=== PATIENT | female | born 2000 | race Two or more races ===

== ENCOUNTER 2024-10-23 13:43 | Emergency (ER) | payer MEDICAID, SELFPAY ==
[2024-10-23 14:32] VITALS: BP 128/78; PULSE 93; RESP 19; TEMP 37.4; O2SAT 98
--- NOTE | 2024-10-23 14:55 | EDNOTE_ITS ---
Upper Respiratory Inf. RME/HPI General Chief Complaint: Flu Like Symptoms Stated Complaint: flu like symptoms Time Seen by Provider: 10/23/24 13:45 Arrival date/time: 10/23/24 13:43 Limitations: no limitations RME / HPI RME / HPI Narrative: 24-year-old female no reported past medical history presents for evaluation of dry cough x 1 day. She endorses nausea without emesis. Endorses chills and diffuse bodyaches. Denies leg swelling, chest pain, hemoptysis, diarrhea, abdominal pain. Denies recent travel. Denies abdominal contraceptive use. Denies history of blood clots. Patient's daughter had similar symptoms. Related Data Home Medications ?Medication ?Instructions ?Recorded ?Confirmed prenat.vits,stacy,[id number] 1 tab PO QDAY 07/12/21 07/14/21 Previous Rx's ?Medication ?Instructions ?Recorded meloxicam 7.5 mg tablet 7.5 mg PO QDAY #10 tabs 08/06/23 acetaminophen 300 mg-codeine 15 mg 1 tab PO Q12H PRN pain #14 tabs 09/18/24 tablet ibuprofen 800 mg tablet 800 mg PO Q8H PRN pain #30 tabs 09/18/24 Allergies Allergy/AdvReac Type Severity Reaction Status Date / Time No Known Allergies Allergy Verified 09/16/24 18:53 Review of Systems Constitutional Constitutional: Reports body ache(s), Reports chills and Reports fever(s) ENT Ears, Nose, Mouth, and Throat: Denies otalgia, Denies nasal congestion, Denies nasal discharge and Denies neck pain Cardiovascular Cardiovascular: Denies chest pain, Denies diaphoresis, Denies dyspnea, Denies leg edema and Denies palpitations Respiratory Respiratory: Reports cough, Denies dyspnea, Denies excessive phlegm production, Denies hemoptysis and Denies wheezing Gastrointestinal Gastrointestinal: Denies change in stool character, Reports nausea and Denies vomiting Genitourinary Genitourinary: Denies dysuria and Denies vaginal discharge Musculoskeletal Musculoskeletal: Denies back pain and Denies neck pain Integumentary/Breasts Skin/Breast: Denies rash Neurologic Neurologic: Denies convulsions Endocrine Endocrine: Denies palpitations Allergic/Immunologic Allergic/Immunologic: Denies wheezing Past Medical History Past Medical History NEUROLOGIC: Negative Neurological Disorders or Seizures CARDIAC: Negative Cardiac Disorders or Congestive Heart Failure RESPIRATORY: Negative Chronic Obstructive Pulmonary Disease (COPD) or Asthma GASTROINTESTINAL: Negative Gastrointestinal Disorders GENITOURINARY: Negative Genitourinary Disorders or Renal Disease REPRODUCTIVE: Negative Endometriosis, Pelvic Inflammatory Disease, Previous Pregnancies or Uterine Prolapse MUSCULOSKELETAL: Negative Musculoskeletal Disorders ENDOCRINE: Negative Endocrine Disorders, Diabetes Mellitus Type 1 or Diabetes Mellitus Type 2 HEMATOLOGIC: Negative Blood Disorders, Anemia or Sickle Cell Disease OTHER HISTORY: Negative Autoimmune Disease, Falls, Blood Transfusions, Anesthesia Reactions or Cancer Family History FAMILY HISTORY: Negative Family Psychiatric Problems, Family Respiratory Disorders, Family Cardiac Disorders, Family Gastrointestinal Problems, Family Cancer, Family Surgery or Family Anesthesia Reaction Surgical History SURGICAL: Negative Section Social History SMOKING STATUS: Never smoker SUBSTANCE USE: does not use ED Exam General Limitations: Present no limitations General appearance: Present alert and in no apparent distress Head Head exam: Present atraumatic and normocephalic Eye Eye exam: Present normal appearance and EOMI ENT ENT exam: Present normal oropharynx, mucous membranes moist and TM's normal bilaterally Neck Neck exam: Present normal inspection and full ROM Chest Chest inspection: Present normal inspection and symmetric chest wall rise Respiratory Respiratory exam: Present wheezes (Mild wheezes upper left lobe.); Absent accessory muscle use Cardiovascular Cardiovascular exam: Present regular rate and +S1 Abdominal Exam Abdominal exam: Present soft and normal bowel sounds; Absent distention, tenderness, guarding, rebound or rigidity Extremities Exam Extremities exam: Present normal inspection and full ROM Back Exam Back exam: Present normal inspection and full ROM; Absent tenderness, CVA tenderness (R) or CVA tenderness (L) Neurological Exam Neurological exam: Present alert and normal gait Psychiatric Psychiatric exam: Present normal affect Skin Skin exam: Present warm and dry Course Quality Measures none Orders Category Date Time Status Bedside COVID-19 Antigen Test NOW Care 10/23/24 14:42 Completed Bedside Influenza A&B Antigen Test NOW Care 10/23/24 14:43 Completed Ondansetron Odt [Zofran Odt] Med 10/23/24 14:42 Discontinued 4 mg PO X1 ONE Vital Signs Vital signs: Vital Signs Temperature 99.3 F 10/23/24 14:32 Pulse Rate 93 10/23/24 14:32 Respiratory Rate 19 10/23/24 14:32 Blood Pressure 128/78 10/23/24 14:32 Pulse Oximetry (%) 98 10/23/24 14:32 Oxygen Delivery Method Room Air 10/23/24 14:32 Pulse ox 98% on room air, within normal limits. Upper Respiratory Infection MDM Narrative MDM Narrative:: 24-year-old female presented with dry cough, body aches, subjective fever for the last several days. Vital signs reassuring. PERC score 0, therefore CTA chest was deferred at this time. Patient afebrile with reported dry cough therefore less concern for bacterial pneumonia and chest x-ray was not obtained. Mild wheezing heard on exam but no accessory muscle use and no shortness of breath reported therefore breathing treatment was not ordered at this time. Viral swabs were negative for COVID and flu, however clinical picture points towards viral illness. Patient's nausea was improved with department following Zofran. Ultimately she was discharged home with plan to follow-up with primary care in the next 2 to 3 days for reevaluation. I stressed the need to hydrate well with p.o. fluids and return to the ED if her symptoms worsen or change. Patient data External records reviewed:: [facility] previous records Clinical information provided by:: patient Social determinants that could affect healthcare access:: none Patient has the following chronic illnesses:: None reported. How is presenting disease/condition affected by chronic disease/condition?: no chronic disease Evaluation data The following diagnostics were reviewed and interpreted by me:: lab results Lab and/or radiology exams considered but not ordered:: Blood work considered not ordered. Imaging considered not ordered. Interpretation Summary: Viral swabs negative. Medications / Prescriptions Medications or Prescriptions considered but not ordered:: Rx given. Medication administrations:: Medication Administration History Discontinued Medications Ondansetron HCl (Ondansetron Odt 4 Mg Tabrap) 4 mg PO X1 ONE; Protocol Stop: 10/23/24 14:43 Last Admin: 10/23/24 15:21 Dose: 4 mg Documented By: Rx given. Consultations Consultation(s) initiated? (list below): No Diagnosis Upper Respiratory Differential Diagnosis: upper respiratory infection, otitis media, sinusitis, viral infection, bronchitis, influenza, pharyngitis and other (PE, reactive airway disease.) Most likely diagnosis given after review of the tests above:: Viral illness. Admission Indicated Admission indicated?: not indicated Admission Request Was there a request for admission?: No Disposition Plan Disposition Plan: Discharge Discharge Attestation Discharge Attestation: The patient and all family members were given an opportunity to ask questions and understood the discharge instructions. Discharge instructions specifically effects, indications for sooner follow up or return to the emergency department, and the expected course of current diagnosis. Patient condition: Stable Discharge Plan Plan Patient Disposition: HOME (Self Care) Disposition Comment: stable Prescriptions/Referrals Prescriptions/Med Rec: No Action Vitamin Tablet 1 tab PO QDAY acetaminophen-codeine 300-15 mg tablet 1 tab PO Q12H PRN (Reason: pain) Qty: 14 0RF ibuprofen 800 mg tablet 800 mg PO Q8H PRN (Reason: pain) Qty: 30 0RF meloxicam 7.5 mg tablet 7.5 mg PO QDAY Qty: 10 0RF Referrals: No Primary/Family,Physician [Primary Care Provider] - In 1 week Problem List Clinical Impression: Viral infection Patient/Caregiver Discharge Instructions Other Activity Instructions:: Continue to hydrate well with oral fluids. Rest and take Tylenol and/or Motrin as needed for fever discomfort. Follow-up with primary care in the next 2 to 3 days. Return to the ED if your symptoms worsen or change. Education Materials: ED Viral Syndrome (Adult) Print Language: Malawian Stand Alone Forms: Eliz Award Info., Patient Portal Info Letter PA/NEPHROLOGY SOCIAL WORKER Supervising Physician PA/NEPHROLOGY SOCIAL WORKER Supervising Physician: Dr. Davis
[2024-10-23] MEDS: ONDANSETRON ODT 4 MG TABRAP PO (15:21)
== END 2024-10-23 16:57 | disposition home or self-care (01) ==
PROVIDERS: Emergency Provider Emergency Medicine
DX: B34.9 Viral infection, unspecified (principal)
CPT/HCPCS: 87400; 87811; 99283; Q0162

== ENCOUNTER 2025-11-03 10:31 | Outpatient (AMB) | payer MEDICAID, SELFPAY ==
[2025-11-03 11:10] VITALS: BP 118/76; PULSE 81; RESP 16; TEMP 36.6; O2SAT 98; BMI 41.3
--- NOTE | 2025-11-03 11:10 | AMB.OBINITIA ---
Vital Signs 11/03/25 11:10 Height 1.5 m Height Method Stated Weight 92.986 kg Weight Measurement Method Standing Scale BMI 41.3 BP 118/76 Blood Pressure Source Automatic Cuff Blood Pressure Location Left Upper Arm Position Sitting Respiration 16 Pulse 81 Pulse Source Monitor Temp 97.8 F Temp Source Oral Pulse Oximetry (%) 98 Oxygen Delivery Method Room Air Allergies/Home Meds Allergies & Medications Allergies No Known Allergies Allergy (Verified 11/03/25 11:11) Medication Reconciliation prenat.vits,stacy,[id number]-hevu-qbmqa 1 tab PO QDAY 07/12/21 [History Confirmed 11/03/25] Intake Visit Data Collection New Patient or Established: Established Patient (seen at [facility] within 3 years) Reason for Visit:: TRANSFER INITIAL CARE Seen by Clinical Staff ONLY (RN/MA): No Bottle Assembler Required: Yes Bottle Assembler's name/title: LONI ADLER Do You Feel Safe at Home: Yes Authorities Contacted: N/A PCP or OBGYN visit in last 3 months: Yes Hx Now: Yes Are you currently on any form of Control: No Last menstrual period: 03/11/25 Pain Present Currently: No Pain Scale Used: Thompson-Tejeda/Numerical Pain scale:: 0 Smoking Status Smoking Status: Never smoker Immunizations Flu Vaccine in the Last 12 Months: Yes Flu Vaccine Exclusion Criteria: Already Received Questionnaires Covid-19 Vaccine Questionnaire Has patient been vacinated for Covid-19 Have you been vacinated for Covid-19: Yes PHQ-9 PHQ-2 Over the last 2 weeks, how often have you been bothered by any of the following problems? 1. Little interest or pleasure in doing things: not at all 2. Feeling down, depressed, or hopeless: not at all Total score: 0 PHQ-9 3. Trouble falling or staying asleep, or sleeping too much: Not at all 4. Feeling tired or having little energy: Not at all 5. Poor appetite or overeating: Not at all 6. Feeling bad about yourself - or that you are a failure or have let yourself or your family down: Not at all 7. Trouble concentrating on things, such as reading the newspaper or watching television: Not at all 8. Moving or speaking so slowly that other people could have noticed? - Or the opposite - being so fidgety or restless that you have been moving around a lot more than usual: not at all 9. Thoughts that you would be better off or of hurting yourself in some way: Not at all Total score: 0 Source: Developed by Drs. Sebastian Terrell, Triny Brooke, Fran Barros and colleagues, with an educational berto from [employer]. Depression screen completed yes Social History Living Situation History Marital Status: Life Partner Lives With: Family Housing: Condominium Tobacco History Smoking Status: Never smoker Second Hand Smoke Exposure: No Alcohol History Alcohol Intake: Never Domestic Abuse History Do You Feel Safe at Home: Yes History of Present Illness HPI Narrative ? 25Years old G3 ?P?1at gestational age?33.6 weeks based on last menstrual period of dated?.03/11/2025 and confirmed by first and second trimester US / referral from Dr Delaney/ One at term and send is a 5 months still likely abruption/ and patient had PPROm/ MFM advise serial US for grwoth and NST weekly from 34 weeks due to obesity / One hour GTT is 145 and 3 hour GTT is normal /A positive / Rubella immune / RPR/HIV and hepb and Hep C negative .GC and CT negative No complaints so far Here for first visit on transfer Ultrasound see records medical problems obesity Allergies NKDA Surgical history h/o retained placenta social history see notes COLLEGE INTERN: Past Medical History Past Medical History: No Hx Neurological Disorders, No Hx Cardiac Disorders, No Hx Cancer, No Hx Blood Disorders, No Hx Anemia, No Hx Gastrointestinal Disorders, No Hx Renal Disease, No Hx Diabetes Mellitus Type 1 and No Hx Diabetes Mellitus Type 2 Additional Operations/Hospitalizations (year & reason): had still at 5 months / PPROM/ likely abruption Other Relevant History: obesity class 3 BMI is 41.1 OB Initial Visit OB Flowsheet OB Flowsheet Initial Weight: Not Recorded Date <del>?</del> EGA Weight BP Alb Glu CTX Pres Fundal ht FHR Mov Dilation Station Effacement Hx Notes Visit Note 11/03/25 <del>?</del> 33w 6d 92.986 kg 118/76 occasional cephalic 35 144 active Menstrual History Menstrual reliability: definite Flow: heavy Menstrual regularity: regular Monthly: Yes Age at menarche: 12 On control pills at conception: No Associated symptoms (LMP): Reports nausea OB History : 3 Para: 1 Hx # Pregnancies: 1 # of Living Children: 1 Delivery History 1st : Child's name: FREDERICK date: 07/15/21 sex: female Gestational age at delivery (weeks): 40 Delivery type: vaginal weight (lbs): 3175.147 g weight (oz): 425.243 g Delivery complications: NONE History of depression before or after : No Infection History & Risk Evaluation History of STDs: none Genetic Screening & History Genetic Screening/Teratology Counseling - Includes patient, baby's father, or anyone in either family with: 1. Patient's age 35 years or older as of estimated date of delivery: No 2. Thalassemia (South African, Belarusian, Mediterranean, or Background); MCV less than 80: No 3. Neural Tube Defect (Meningomyelocele, Spina Bifida, or Anencephaly): No 4. Congenital Heart Defect: No 5. Down Syndrome: No 6. Javier-Sachs (Ashkenazi Holiness, Cajun, Slovenian Micronesian): No 7. Gerardo Disease (Ashkenazi Holiness): No 8. Familial Dysautonomia (Ashkenazi Holiness): No 9. Sickle Cell Disease or Trait (): No 10. Hemophilia or other blood disorders: No 11. Muscular Dystrophy: No 12. Cystic Fibrosis: No 13. Marina's Chorea: No 14. Mental Retardation/Autism: No 15. Other inherited genetic or chromosomal disorder: No 16. Maternal Metabolic Disorder (EG,TYPE 1 Diabetes, PKU): No 17. Patient or baby's father had a child with defects not listed above: No 18. Recurrent loss or a stillbirth: No 19. Medications (including supplements, vitamins, herbs or otc drugs)/illicit/recreational drugs/alcohol since last menstrual period: No 20. Any other: No Infection History 1. Live with someone with TB or exposed to TB: No 2. Rash or viral illness since last menstrual period: No 3. Hepatitis B,C: No Other (see comments) Source: [employer] Review of Systems Review of Systems Systems Reviewed: All systems reviewed, normal except as documented Gastrointestinal Gastrointestinal: Reports nausea Office Procedures [facility] LOC & Office Proc's Nursing/Assessment Patient Status: Established Patient OB Clinic Nursing Assessment: Medication Reconciliation, Update PMH in EMR and Vital Signs OB Clinic Coordination of Care: Complex Care and Chronic Disease 1-5, Consent,records obtained, informed consent, Education Simp Pt/Fam, 1 Ins Authorization, Lab and Imaging orders, Results/Orders obtained and Staff clarify orders Special Needs: Heart tones Established Patient Charge Established Patient Point Assignment: 150 Established Patient Point Charge: EP Level 4 (120-155) Assessment & Plan Diagnosis / Problem List (1) , high-risk: Status: Acute Qualifiers: Trimester: unspecified trimester Qualified Code(s): O09.90 - Supervision of high risk , unspecified, unspecified trimester (2) Obesity affecting , antepartum: Status: Acute Qualifiers: Obesity type affecting : unspecified obesity Qualified Code(s): O99.210 - Obesity complicating , unspecified trimester (3) History of stillbirth in currently patient: Status: Acute Qualifiers: Trimester: third trimester Qualified Code(s): O09.293 - Supervision of with other poor reproductive or obstetric history, third trimester Assessment and Plan: 33.6 weeks today / weekly NST/GBS next visit/ kick count and serial uS for growth / waiting to be called for appointment Additional Assessment ? 25Years old G3 ?P?1at gestational age?33.6 weeks based on last menstrual period of dated?.03/11/2025 and confirmed by first and second trimester US / referral from Dr Delaney/ One at term and send is a 5 months still likely abruption/ and patient had PPROm/ MFM advise serial US for grwoth and NST weekly from 34 weeks due to obesity / One hour GTT is 145 and 3 hour GTT is normal /A positive / Rubella immune / RPR/HIV and hepb and Hep C negative .GC and CT negative No complaints so far Here for first visit on transfer
== END 2025-11-03 11:41 | disposition home or self-care (01) ==
LOC: HODSOBC 10:31
PROVIDERS: Supervising Provider Obstetrics & Gynecology; Visit Provider Obstetrics & Gynecology
DX: O09.893 Supervision of other high risk pregnancies, third trimester (principal); O99.213 Obesity complicating pregnancy, third trimester; O09.293 Supervision of pregnancy with other poor reproductive or obstetric history, third trimester; Z3A.33 33 weeks gestation of pregnancy
CPT/HCPCS: 99214; G0463

== ENCOUNTER 2025-11-15 20:29 | Observation (INO) | payer MEDICAID, SELFPAY ==
[2025-11-15] VITALS (15 sets, daily range): BP systolic 122–136; BP diastolic 63–71; PULSE 97–116; RESP 18–98; TEMP 36.9; O2SAT 97–99; BMI 43.0
[2025-11-15] MEDS: ACETAMINOPHEN 500 MG TABLET 1000 MG PO (21:02)
[2025-11-16 09:15] LABS: BVAG Candida Positive (Negative); Bacterial Vaginosis Markers Negative (Negative); Candida glabrata Negative (Negative); Candida krusei PCR Negative (Negative); Trichomonas Negative (Negative)
== END 2025-11-15 23:56 | disposition home or self-care (01) ==
LOC: S4SX 22:04 → S4NX 23:06
PROVIDERS: Admitting Provider Obstetrics & Gynecology; Visit Provider Obstetrics & Gynecology
DX: O26.893 Other specified pregnancy related conditions, third trimester (principal); Z3A.35 35 weeks gestation of pregnancy; R51.9 Headache, unspecified; R10.30 Lower abdominal pain, unspecified; O99.891 Other specified diseases and conditions complicating pregnancy; N89.8 Other specified noninflammatory disorders of vagina
CPT/HCPCS: 59025; 59899; 81514; A9270

== ENCOUNTER 2025-11-19 08:15 | Observation (INO) | payer MEDICAID, SELFPAY ==
[2025-11-19] VITALS (10 sets, daily range): BP systolic 128; BP diastolic 77; PULSE 86–104; RESP 19–99; TEMP 36.8; O2SAT 98–100; BMI 42.1
--- NOTE | 2025-11-19 08:58 | PC.NURSE ---
[employer] software security consultant used for all communication-[id number]: [id number]
[2025-11-19] MEDS: ACETAMINOPHEN IVPB 1,000 MG/100 ML VIAL 250 MG IV (09:09)
[2025-11-19] MEDS: ONDANSETRON INJ 2 MG/ML INJ 2 ML 4 MG IVP (09:10)
[2025-11-19] MEDS: RINGERS LACTATED 1000 ML 1,000 ML 999 ML IV (09:10)
[2025-11-19 09:42] LABS: Basophils # (Auto) 0.0 Thou/mm3 (0.0-0.2); Basophils % (Auto) 0 % (0-2.5); Eosinophils # (Auto) 0.0 Thou/mm3 (0.0-0.5); Eosinophils % (Auto) 0 % (0-10); Hematocrit 39.6 % (36.0-46.0); Hemoglobin 13.2 g/dL (12.0-16.0); Immature Granulocytes Auto 0.04 Thou/mm3 (0.00-0.00); Lymphocytes # (Auto) 1.6 Thou/mm3 (1.0-4.8); Lymphocytes % (Auto) 18 % (10-50); Mean Corpuscular HGB Conc 33.3 g/dl (31.0-37.0); Mean Corpuscular Hemoglobin 28.6 pg (25.0-35.0); Mean Corpuscular Volume 86 fL (80-100); Monocytes # (Auto) 0.9 Thou/mm3 (0.0-0.8); Monocytes % (Auto) 9 % (0-12); Neutrophils # (Auto) 6.6 Thou/mm3 (1.8-7.7); Neutrophils % (Auto) 72 % (37-80); Nucleated Red Blood Cell # 0.00 Thou/mm3 (0.00-0.00); Nucleated Red Blood Cell % 0 /100 WBC (0); Platelet Count 155 Thou/mm3 (140-440); RDW Standard Deviation 42.3 fL (36.4-46.3); Red Blood Count 4.61 Miln/mm3 (4.00-5.20); White Blood Count 9.2 Thou/mm3 (3.6-11.0)
[2025-11-19 10:05] LABS: Influenza A Ag Negative; Influenza B Ag Negative
[2025-11-19 10:07] LABS: Alanine Aminotransferase 19 U/L (10-49); Albumin, Serum 3.9 gm/dL (3.5-5.0); Albumin/Globulin Ratio 1.3 (1.2-2.2); Alkaline Phosphatase 206 U/L (46-116); Anion Gap 12 (7-16); Aspartate Amino Transferase 31 U/L (0-34); BUN/Creatinine Ratio 12 Ratio (12-20); Bilirubin,Total 0.4 mg/dL (0.3-1.2); Blood Urea Nitrogen 6 mg/dL (9-23); Calcium 8.9 mg/dL (8.3-10.6); Calcium (Corrected) 9.0 mg/dL (8.5-10.1); Carbon Dioxide 22.0 mMol/L (20.0-31.0); Chloride 107 mMol/L (98-107); Creatinine (Component) 0.5 mg/dL (0.6-1.3); Estimated Creatinine Clearance 167.6 mL/min (>60); Globulin 2.9 gm/dL (2.3-3.5); Glucose 81 mg/dL (74-106); Osmolality,Calculated 277 (275-295); Potassium 4.3 mMol/L (3.4-5.1); Sodium 141 mMol/L (136-145); Total Protein 6.8 gm/dL (5.7-8.2); eGFR > 60 See Note
[2025-11-19 10:07] LABS: COVID-19 Antigen (In-House) Positive (Negative)
--- NOTE | 2025-11-19 10:36 | PD.EVENT ---
Documentation for date of: 11/19/25 Event Note Event Note: The patient is a 25-year-old -0-1-1 history of vaginal delivery in 2020 followed by some type of febrile illness with some type of flank pain in the ER 09/16/2024. She was sent home and again presented to the ER the same day and went on to deliver an approximately 18-6/7 weeks fetus. She presented today reporting flulike symptoms including nausea vomiting and abdominal pain. No contractions. No high fevers. As part of her workup a white count was done and is normal. Her other labs are normal except today the patient is positive for COVID. She was given a liter of IV fluids. She is going to be discharged home with p.o. cough and cold medicine and home p.o. fluids encouraged. Of note she was a Dr. Delaney patient still 33 weeks and has only seen Dr. Sharpe in the clinic once at 34 weeks. She has scheduled NSTs for her history of labor with demise in 2023. Labor precautions and kick counts were reviewed with the patient was understandably nervous due to her history of labor and demise in 2023. Follow-up for any bleeding loss of fluids or decreased movement. She was very dehydrated, but still had a category 1 tracing. Tylenol for headaches and fevers. Follow-up for scheduled NST.
== END 2025-11-19 11:19 | disposition home or self-care (01) ==
PROVIDERS: Admitting Provider Obstetrics & Gynecology; Visit Provider Obstetrics & Gynecology
DX: O26.893 Other specified pregnancy related conditions, third trimester (principal); R10.9 Unspecified abdominal pain; O98.513 Other viral diseases complicating pregnancy, third trimester; U07.1 COVID-19; Z3A.36 36 weeks gestation of pregnancy
CPT/HCPCS: 36415; 59025; 59899; 80053; 85025; 87502; 87811; 96374; J0131; J2405; J7120